=== PATIENT | male | born 1980 | race Caucasian/White ===

== ENCOUNTER 2019-01-26 12:43 | Emergency (ER) | payer OTHER ==
[~2019-01-26] VITALS: Ht 162.6 cm; Wt 76.4 kg
[~2019-01-26 12:43] MED LIST: ACET500C5 PO; ONDA4TAB14 PO
[2019-01-26 12:50] VITALS: Ht 162.6 cm; Wt 76.4 kg
[2019-01-26] MEDS ORDERED: morphine 4 MG/ML VIAL IV STA (14:36)
[2019-01-26] MEDS ORDERED: ONDANSETRON 4 MG INJ IV STA (14:36)
[2019-01-26] MEDS ORDERED: SOD CHLORIDE 0.9% 1,000 ML IV STA (14:36)
[2019-01-26] MEDS ORDERED: ACETAMINOPHEN 500 MG TAB PO STA (14:43)
[2019-01-26] MEDS ORDERED: SOD CHLORIDE 0.9% 100 ML ONE (15:48)
[2019-01-26] MEDS ORDERED: IOHEXOL 300MG/ML 150 ML BTL ONE (15:48)
[2019-01-26 19:41] VITALS: BP 108/58; PULSE 89; RESP 18
== END 2019-01-26 19:42 | disposition home or self-care (01) ==
LOC: FTE 12:43
DX: R10.31 Right lower quadrant pain (principal); R50.9 Fever, unspecified
CPT/HCPCS: 74177; 80053; 81001; 83605; 83690; 85025; 87040; J2405; J7030; Q9967; Z7610; 36415; 96374; J2270